=== PATIENT | female | born 1975 | race Caucasian/White ===

== ENCOUNTER → 2016-09-02 | Outpatient (CLI) | payer BC ==
[~2016-09-02] MED LIST: DESMOPRESSIN A0.1 M1 PO
--- NOTE | ~2016-09-02 | MY29 ---
[facility] A Service of [facility] & [facility] [place] RADIOLOGY TEXT RESULTS PATIENT: VANDA QUIROGA LOCATION: [facility] : [birth year] UNIT #: [id number] AGE: [address]: Steven Ribeiro MD SEX: F ORDER DR: [id number] [facility] [address] [place], [place] [address] [id number] O MR#: [id number] Acc #: [id number] NAME: VANDA QUIROGA : 1975 SEX: F STUDY DATE/TIME: 09/02/2016 15:28 UNIT: [facility] ROOM: STUDY DESCRIPTION: MY LUCIEN SCREENING W/ CAD BILAT Attending Physician: Steven Ribeiro M.D. Referring Physician: Steven Ribeiro M.D. Ordering Physician: Steven Ribeiro M.D. Primary Care Physician: Jesus Manuel Eagle M.D. MEDICAL IMAGING REPORT This report is preliminary unless electronic signature is present EXAM Digital screening mammogram 09/02/2016. HISTORY A 40-year-old woman positive family history, grandmother. Prior diagnostic workup for right breast lump. Annual screening. COMPARISON STUDIES 07/31/2015 with right breast ultrasound. FINDINGS Digital imaging of each breast was completed utilizing screening protocol. Review includes FDA-approved CAD device. Breast parenchyma is heterogeneous with fibroglandular opacities upper outer quadrants bilaterally. Dominance is noted on the right. Subareolar density is also noted in each breast dominant on the left. There are associated microcalcifications most numerous in the left subareolar location. I see no suspicious mass characteristics. Microcalcifications are stable with benign characteristics. There is no architectural distortion. IMPRESSION Stable benign mammogram. Annual screening recommended. BIRADS II Patients over the age of 40 are entered into a reminder system with target due date for the next mammogram. A result letter will also be sent to the patient. BIRADS: 2 Benign Finding [facility] A Service of [facility] & [facility] [place] RADIOLOGY TEXT RESULTS PATIENT: VANDA QUIROGA LOCATION: [facility] : 71 UNIT #: [id number] AGE: [address]: Steven Ribeiro MD SEX: F ORDER DR: Dictated by... Demetrius Brennan M.D. THIS IS AN ELECTRONICALLY VERIFIED REPORT Demetrius Brennan M.D. at 09/03/2016 8:10 AM Noelle TD: 09/02/2016 21:49 JOB #: [id number] MEDICAL IMAGING REPORT Page 1 of 1 COPY
== END | disposition home or self-care (01) ==
LOC: CWCC 09-01 08:45
DX: Z12.31 Encounter for screening mammogram for malignant neoplasm of breast (principal); Z80.3 Family history of malignant neoplasm of breast
CPT/HCPCS: G0202